=== PATIENT | female | born 1935 | race Caucasian/White ===

== ENCOUNTER 2018-04-21 12:49 | Outpatient (CLI) | payer MEDICARE | END 2018-04-21 23:59 | disposition home or self-care (01) | LOC: CARD DIAG 12:49 | PROVIDERS: ATTEND Family Medicine | DX: I08.0 Rheumatic disorders of both mitral and aortic valves (principal) | CPT/HCPCS: 93306 ==

== ENCOUNTER 2023-12-06 08:32 | Emergency (ER) | payer MEDICARE ==
[~2023-12-06] VITALS: Ht 172.7 cm; Wt 78.3 kg
[2023-12-06 08:38] VITALS: TEMP 98.4
[2023-12-06] MEDS ORDERED: TETanus/Pertussis (Acell)/Diphther VAC/PF (Tdap-Adult) 0.5ml syringe IMVAC ONE (09:25)
[2023-12-06] MEDS ORDERED: LIDOCAINE 1%/EPI 1:100,000 inj. 10 ML multi-dose vial IJ ONE (09:25)
[2023-12-06] MEDS ORDERED: bacitracin 15gm ointment TP ONE (10:25)
[2023-12-06 10:50] VITALS: BP 147/71; PULSE 87; RESP 15; O2SAT 97
== END 2023-12-06 10:54 | disposition home or self-care (01) ==
LOC: ER 08:32
DX: S01.112A Laceration without foreign body of left eyelid and periocular area, initial encounter (principal); E78.00 Pure hypercholesterolemia, unspecified; M19.90 Unspecified osteoarthritis, unspecified site; Z91.041 Radiographic dye allergy status; W01.10XA Fall on same level from slipping, tripping and stumbling with subsequent striking against unspecified object, initial encounter; Y93.89 Activity, other specified; Y92.89 Other specified places as the place of occurrence of the external cause; Y99.8 Other external cause status
CPT/HCPCS: 12011; 90471; 90715; 99284; J7030; A6258; A6446; A6449